=== PATIENT | female | born 1985 | race Caucasian/White ===

== ENCOUNTER 2020-01-06 20:00 | Outpatient (CLI) | payer MEDICARE, MEDICAID, SELFPAY | END 2020-01-06 20:01 | disposition home or self-care (01) | LOC: SLEEP 01-07 11:01 | PROVIDERS: PCP Internal Medicine; Visit Provider Nurse Practitioner Family | DX: G47.10 Hypersomnia, unspecified (principal); R53.83 Other fatigue | CPT/HCPCS: 95810 ==

== ENCOUNTER 2020-11-10 07:58 | Outpatient (CLI) | payer MEDICARE, MEDICAID, SELFPAY ==
--- NOTE | 2020-11-10 08:03 | MR_ITS ---
WS: [id number] MRI CERVICAL SPINE WITH AND WITHOUT CONTRAST HISTORY: NEUROPATHY/MULTIPLE SCLEROSIS COMPARISON: 04/30/2018 Technique: Multiplanar, multisequence imaging of the cervical spine with and without MultiHance. Normal cervical alignment with no compression fracture or significant disc space narrowing. Increased T2 and FLAIR signal at multiple levels in the cervical cord. Most significant changes (at t he C2-3 disc level extending to C5. Ill-defined areas of increased signal in the cervical cord. None of these areas enhance. On the T1 sequence there some very mild loss of signal posteriorly extending from C3 through C5. Craniocervical junction, C1 and C2 relationship, odontoid process and soft tissues are normal. C2-C3: No stenosis or disc protrusions. C3-C4: Hypertrophic osteophytes. No stenosis. C4-C5: No stenosis. C5-C6: No stenosis. Motion artifact. C6-C7: No stenosis. Motion. C7-T1: No stenosis. Motion Paraspinal soft tissue are normal. MR/MR cervical spine wo/w [id number] IMPRESSION: 1. Significant motion artifact limiting evaluation for subtle lesions or enhan cement. 2. Continued multilevel areas of increased nonenhancing signal from demyelinat ing disease as described above. No obvious progression.
--- NOTE | 2020-11-10 08:04 | MR_ITS ---
WS: [id number] MRI BRAIN WITH AND WITHOUT CONTRAST HISTORY: NEUROPATHY/MULTIPLE SCLEROSIS COMPARISON: 04/12/2018 TECHNIQUE: Multiplanar imaging performed through the brain with MultiHance 17 ml's IV. No acute infarcts are seen. Steven-white matter differentiation is well preserved. Numerous T2 and FLAI R signal hyperintensities in the white matter and pericallosal distribution consistent with a history of demyelinating disease. No progression or enhancement. None of these areas demonstrate loss of sig nal on the T1 sequences. No significant brain atrophy. Upper cervical cord is negative. No susceptibility artifacts or prior lacunar infarcts. Ventricles and extra-axial spaces are normal. Clivus and pituitary gland are normal. Visualized posterior fossa and brainstem are also normal. Postcontrast images are negative for masses or vascular malformations. Dural venous sinuses are normal. Paranasal sinuses: Mucous retention cyst in the RIGHT maxillary sinus. Mastoid air cells: Normal. Calvarium and scalp: Normal. MR/MR head wo/w con [id number] IMPRESSION: 1. Stable demyelinating lesions without enhancement since 04/12/2018. No progre ssion. Mild demyelinating burden. 2. No enhancing masses. No infarcts.
--- NOTE | 2020-11-10 08:04 | MR_ITS ---
WS: [id number] MRI THORACIC SPINE with and without contrast. HISTORY: NEUROPATHY/MULTIPLE SCLEROSIS COMPARISON: 04/30/2018 TECHNIQUE: Multiplanar sequences are performed in sagittal and axial planes. Post contrast imaging al so performed. The increased signal in the upper thoracic spine at T1-2 is better seen on the MRI cervical exam. The re is an additional area of mild increased signal on the ventral cord at T8-9. Increased signal at th e T12-L1 level. All of these areas appear stable as compared to the prior examination with no enhance ment. There is no lucency or necrosis. No disc protrusions or stenosis. No atrophy or enlargement of the thoracic cord. MR/MR thoracic spine wo/w [id number] IMPRESSION: 1. Study is compromised by motion. 2. Demyelinating lesions at T1-2, T8-9 and T12-L1 do not enhance. Stable with no progression since the prior study. Subtle areas of enhancement would be obsc ured by the amount of motion.
== END 2020-11-10 07:59 | disposition home or self-care (01) ==
PROVIDERS: PCP Internal Medicine; Visit Provider Nurse Practitioner Family
DX: G35 Multiple sclerosis (principal); R20.9 Unspecified disturbances of skin sensation; G62.9 Polyneuropathy, unspecified
CPT/HCPCS: 70553; 72156; 72157; A9577

== ENCOUNTER 2021-11-08 11:35 | Emergency (ER) | payer MEDICARE, MEDICAID, SELFPAY ==
--- NOTE | 2021-11-08 11:40 | XR_ITS ---
WS: [id number] PORTABLE CHEST HISTORY: SOB COMPARISON: 10/11/2017 Lungs are clear and well expanded. No pleural effusion or pneumothorax. Cardiac size: Normal. Mediastinum/Aorta: Normal mediastinum. No osseous abnormality seen. XR/XR chest 1V portable [id number] IMPRESSION: Unremarkable portable chest.
[2021-11-08 11:43] VITALS: BP 119/86; PULSE 109; RESP 18; TEMP 36.7; O2SAT 96; BMI 33.8
[2021-11-08 13:38] LABS: Basophils % 0.4 %; Eosinophils # 0.1 10^3/uL (0.0-0.8); Eosinophils % 1.2 %; Hematocrit 42.2 % (37.0-47.0); Hemoglobin 13.7 g/dL (11.5-15.3); Lymphocytes # 1.8 10^3/uL (0.8-4.8); Mean Corpuscular HGB Conc 32.5 g/dL (30.0-36.0); Mean Corpuscular Hemoglobin 30.2 pg (28.0-34.0); Mean Corpuscular Volume 93.2 fl (81-99); Mean Platelet Volume 10.1 fL (7.4-10.4); Monocytes # 0.4 10^3/uL (0.2-0.9); Monocytes % 7.7 %; Neutrophils # 3.34 10^3/uL (1.8-7.7); Neutrophils % 58.5 %; Nucleated Red Blood Cells % 0 %; Platelet Count 241 10^3/cmm (130-400); Red Blood Count 4.53 10^6/uL (4.1-5.3); Red Cell Distribution Width 11.6 % (12.1-15.1); White Blood Count 5.7 10^3/uL (4.0-10.0)
[2021-11-08 13:59] LABS: Alanine Aminotransferase 68 U/L (0-33); Albumin Level 4.2 g/dL (3.5-5.2); Alkaline Phosphatase 108 IU/L (35-105); Anion Gap 16.4 (5-19); Aspartate Amino Transferase 26 U/L (0-32); Blood Urea Nitrogen 19 mg/dL (6-20); Calcium 9.2 mg/dL (8.5-10.5); Carbon Dioxide 23 mmol/L (22-29); Chloride 105 mmol/L (98-107); Globulin 2.3 g/dL (1.3-4.6); Glomerular Filtration Rate 113.1 mL/min (90-130); Glucose 99 mg/dL (65-115); Osmolality Calculated 292 mOsm/kg (285-295); Potassium 4.4 mmol/L (3.5-5.1); Sodium 140 mmol/L (136-145); Total Bilirubin 0.2 mg/dL (0.15-1.2); Total Protein 6.5 g/dL (6.6-8.7)
[2021-11-08 14:05] LABS: Procalcitonin 0.04 ng/mL (0-0.5)
[2021-11-08 15:43] LABS: SARS Covid-2 Antigen Negative (Negative)
[2021-11-08 16:49] VITALS: BP 135/93; PULSE 111; RESP 20; O2SAT 99
--- NOTE | 2021-11-08 17:03 | W.ED.SOB ---
HPI - SOB/Dyspnea General: Chief Complaint: Shortness of Breath/Dyspnea Stated Complaint: SOB Time Seen by Provider: 11/08/21 17:00 Source: patient History of Present Illness: HPI Narrative: 35-year-old female comes in today with some shortness of breath on exertion. Patient reports that she was able to talk and carry on a conversation but when she got up to move it she felt more short of breath. Patient at rest noted to have no tachypnea or signs of respiratory distress. When patient went to talk though her respiratory rate increased and she seemed short of breath. Patient denied feeling anxious. Patient reported no chest pain or other discomfort. Patient does have a history of MS, thyroid dysfunction, depression and chronic fatigue syndrome. Patient appears nontoxic, patient appears no pain. Review of Systems Resp: Reports: dyspnea PFSH ED PFSH: Medical History (Updated 11/08/21 @ 17:54 by ANUEL Zuleta) Acid reflux Chronic fatigue Depression History of fracture of left ankle History of fracture of right ankle Insomnia Multiple sclerosis Neuropathy Plantar fasciitis Thyroid goiter Is undertreatment for hyperthyroidism Vitamin D deficiency Physical Exam Const: COMMON NORMALS: patient oriented x3 and healthy appearing NUTRITIONAL APPEARANCE: obese Neck/C-Spine: COMMON NORMALS: full ROM and no lymphadenopathy Resp: COMMON NORMALS: clear to auscultation bilaterally EFFORT & INSPECTION: Yes able to speak in complete sentences AUSCULTATION: clear to auscultation bilaterally GI: COMMON NORMALS: Soft to palpation PALPATION: Yes Soft to palpation and No Tenderness to palpation present (GI) Extremity: GENERAL: No edema Neuro: COMMON NORMALS: patient oriented x3 and gait normal Psych: COMMON NORMALS: cooperative Skin: COMMON NORMALS: no rashes or lesions noted GENERAL SKIN EXAM: no rashes or lesions noted Course Vital Signs: Vital signs: Vital Signs Temperature 98.1 F 11/08/21 11:43 Pulse Rate 111 H 11/08/21 16:49 Respiratory Rate 20 H 11/08/21 16:49 Blood Pressure 135/93 11/08/21 16:49 Pulse Oximetry 99 11/08/21 16:49 MDM - SOB/Dyspnea MDM Narrative Medical decision making narrative: 35-year-old female comes in today with complaints of shortness of breath with exertion. Patient reports for the last 3 days she has had these episodes. On exam patient is alert and oriented. Patient appears well and without any signs of distress. Patient does get tachypneic when she is talking to the provider although when she is sitting quietly she is have normal respirations without any distress. Lungs are clear to auscultation. Vital signs are normal. Differential diagnosis includes but not limited to adverse effect of drug, anxiety, pneumonia, COVID-19. COVID-19 test was negative. Laboratory values were unremarkable except for some mild elevation in liver enzymes. I suspect that this may be either anxiety or secondary to some of her medication. I recommended patient follow-up with her primary care provider or prescribe her medications for further evaluation and treatment. Patient reported understanding agreed to plan. Lab Data Result diagrams: 11/08/21 13:17 11/08/21 13:17 Labs: Radiology Impressions Chest X-Ray 11/08/21 11:40 IMPRESSION: Unremarkable portable chest. Laboratory Results WBC 5.7 10^3/uL (4.0-10.0) 11/08/21 13:17 RBC 4.53 10^6/uL (4.1-5.3) 11/08/21 13:17 Hgb 13.7 g/dL (11.5-15.3) 11/08/21 13:17 Hct 42.2 % (37.0-47.0) 11/08/21 13:17 MCV 93.2 fl (81-99) 11/08/21 13:17 MCH 30.2 pg (28.0-34.0) 11/08/21 13:17 MCHC 32.5 g/dL (30.0-36.0) 11/08/21 13:17 RDW 11.6 % (12.1-15.1) L 11/08/21 13:17 Plt Count 241 10^3/cmm (130-400) 11/08/21 13:17 MPV 10.1 fL (7.4-10.4) 11/08/21 13:17 Neut % (Auto) 58.5 % 11/08/21 13:17 Lymph % (Auto) 32.0 % 11/08/21 13:17 [place] % (Auto) 7.7 % 11/08/21 13:17 Eos % (Auto) 1.2 % 11/08/21 13:17 Baso % (Auto) 0.4 % 11/08/21 13:17 Neut # (Auto) 3.34 10^3/uL (1.8-7.7) 11/08/21 13:17 Lymph # (Auto) 1.8 10^3/uL (0.8-4.8) 11/08/21 13:17 [place] # (Auto) 0.4 10^3/uL (0.2-0.9) 11/08/21 13:17 Eos # (Auto) 0.1 10^3/uL (0.0-0.8) 11/08/21 13:17 Baso # (Auto) 0.0 10^3/uL (0.0-0.1) 11/08/21 13:17 Nucleated RBC % (auto) 0 % 11/08/21 13:17 Nucleated RBCs # 0.0 /100WBC 11/08/21 13:17 Sodium 140 mmol/L (136-145) 11/08/21 13:17 Potassium 4.4 mmol/L (3.5-5.1) 11/08/21 13:17 Chloride 105 mmol/L (98-107) 11/08/21 13:17 Carbon Dioxide 23 mmol/L (22-29) 11/08/21 13:17 Anion Gap 16.4 (5-19) 11/08/21 13:17 BUN 19 mg/dL (6-20) 11/08/21 13:17 Creatinine 0.6 mg/dL (0.5-0.9) 11/08/21 13:17 GFR Calculation 113.1 mL/min (90-130) 11/08/21 13:17 Glucose 99 mg/dL (65-115) 11/08/21 13:17 Calculated Osmolality 292 mOsm/kg (285-295) 11/08/21 13:17 Calcium 9.2 mg/dL (8.5-10.5) 11/08/21 13:17 Total Bilirubin 0.2 mg/dL (0.15-1.2) 11/08/21 13:17 AST 26 U/L (0-32) 11/08/21 13:17 ALT 68 U/L (0-33) H 11/08/21 13:17 Alkaline Phosphatase 108 IU/L (35-105) H 11/08/21 13:17 Total Protein 6.5 g/dL (6.6-8.7) L 11/08/21 13:17 Albumin 4.2 g/dL (3.5-5.2) 11/08/21 13:17 Globulin 2.3 g/dL (1.3-4.6) 11/08/21 13:17 Procalcitonin 0.04 ng/mL (0-0.5) 11/08/21 13:17 SARS-CoV-2 Ag (Rapid) Negative (Negative) 11/08/21 15:12 EKG Data EKG 1: EKG Interpretation Date: 11/08/21 EKG interpretation time: 17:35 Prior EKG tracings: not available for review Interpretation: EKG shows a sinus tachycardia with a regular rate at [address] elevation is noted or ectopy is noted. No prior exam is available for comparison at this time. Discharge Plan Discharge Patient Disposition: Home Clinical Impression: Dyspnea, unspecified Condition: Stable Prescriptions: No Action estradiol 0.5 mg tablet 0.5 mg PO DAILY 0RF Rx Instructions: off 5 days; repeat cycle methimazole 10 mg tablet 10 mg PO DAILY 0RF atorvastatin 40 mg tablet 40 mg PO DAILY 0RF baclofen 10 mg tablet 10 mg PO BID 0RF carbamazepine 200 mg tablet 200 mg PO BID 0RF gabapentin 400 mg capsule 400 mg PO BID 0RF methylphenidate HCl 20 mg tablet 20 mg PO BID 0RF sertraline 50 mg tablet 50 mg PO TID 0RF topiramate 50 mg tablet 50 mg PO BID 0RF modafinil 200 mg tablet 100 mg PO BID 0RF Rx Instructions: take 1/2 tab every morning at 1/2 tab at noon omeprazole 20 mg capsule,delayed release(DR/EC) See Rx Instructions .ROUTE .COMPLEX Qty: 180 0RF Dose Instruction: Take 1 capsule by mouth twice daily. Rx Instructions: Take 1 capsule by mouth twice daily. Discharge Orders: Discharge ED (Routine); Ordered 11/08/21 Ordered By: Donte Lujan Referrals: Liliana Delgado DO [Primary Care Provider] - Discharge Diet: Usual diet Discharge Activity: Increase activity as tolerated Patient Instructions: Shortness of Breath (ED) Activity Restrictions/Additional Instructions: Activity as tolerated. You have some shortness of breath with exertion, I think this may be a side effect of some of your medications and you should talk to your primary care for prescriber about these medications. Your labs and EKG noted no abnormalities that may cause the symptoms. Your primary care may want you to follow-up with a gear technician or revenue cycle specialist for further evaluation. Return to the ER for worsening symptoms or new concerns. Coding Level of Care Code ED Hospitality Housekeeper for Ezequiel Guillen
--- NOTE | 2021-11-08 17:08 | ECG_ITS ---
[facility] Test Date: 2021-11-08 Pat Name: Edith Pugh Department: Room: Gender: Female Hull Builder: : 1985 Requested By: Donte Costa Order Number: [id number] Figueroa MD: Ruth Ann Dotson M.D. Measurements Intervals [place] Rate: 105 P: 50 MN: 168 QRS: -6 QRSD: 77 T: 35 QT: 315 QTc: 417 Interpretive Statements SINUS TACHYCARDIA POSSIBLE LEFT ATRIAL ENLARGEMENT [-0.1mV P-WAVE IN V1/V2] POSSIBLE RIGHT VENTRICULAR CONDUCTION DELAY [RSR (QR) IN V1/V2] Compared to ECG 12/05/2016 12:23:17 Sinus rhythm no longer present Incomplete right bundle-branch block no longer present Electronically Signed On 11-08-2021 21:36:22 CROP SETTING OUT MACHINE OPERATOR by Ruth Ann Dotson M.D. [id number]
[2021-11-10 15:21] LABS: Free T4 Free Thyroxine 3.78 ng/dL (0.82-1.77); Thyroid Stimulating Hormone 0.01 uIU/mL (0.27-4.20)
== END 2021-11-08 18:01 | disposition home or self-care (01) ==
PROVIDERS: Physician Assistant; Psychiatry & Neurology Neurology; Emergency Provider Nurse Practitioner Family; PCP Internal Medicine
DX: R06.00 Dyspnea, unspecified (principal); G35 Multiple sclerosis; Z20.822 Contact with and (suspected) exposure to COVID-19
CPT/HCPCS: 71045; 80053; 84145; 84439; 84443; 85025; 87426; 93005; 99283

== ENCOUNTER → 2021-11-23 13:12 | Outpatient (BNVA) | payer MEDICARE, MEDICAID, SELFPAY | PROVIDERS: PCP Internal Medicine; Referring Provider Family Medicine Adult Medicine; Visit Provider Internal Medicine | DX: E05.90 Thyrotoxicosis, unspecified without thyrotoxic crisis or storm (principal); E04.9 Nontoxic goiter, unspecified; R74.01 Elevation of levels of liver transaminase levels; G35 Multiple sclerosis | CPT/HCPCS: 83516; 86376; 86800; 99204 ==

== ENCOUNTER 2021-11-23 14:45 | Outpatient (CLI) | payer MEDICARE, MEDICAID, SELFPAY ==
[2021-11-24 14:07] LABS: Thyroid Peroxidase Antobodies 1 IU/mL (<9)
[2021-11-24 14:22] LABS: Thyroglobulin AB <1 IU/mL (< or = 1)
[2021-11-29 21:56] LABS: TSH Receptor Binding Antibody 12.29 IU/L (< OR = 2.00)
== END 2021-11-23 14:46 | disposition home or self-care (01) ==
LOC: LAB 15:04
PROVIDERS: PCP Family Medicine Adult Medicine; Visit Provider Internal Medicine
DX: E05.90 Thyrotoxicosis, unspecified without thyrotoxic crisis or storm (principal)
CPT/HCPCS: 83516; 86376; 86800

== ENCOUNTER → 2021-12-16 10:43 | Outpatient (BNVA) | payer MEDICARE, MEDICAID, SELFPAY | PROVIDERS: PCP Family Medicine Adult Medicine; Visit Provider Family Medicine Adult Medicine | DX: E05.90 Thyrotoxicosis, unspecified without thyrotoxic crisis or storm (principal); R74.01 Elevation of levels of liver transaminase levels | CPT/HCPCS: 80053; 84439; 84443; 84480; 85025 ==

== ENCOUNTER → 2022-01-09 13:58 | Outpatient (BNVA) | payer MEDICARE, MEDICAID, SELFPAY | PROVIDERS: PCP Family Medicine Adult Medicine; Visit Provider Podiatrist Foot & Ankle Surgery | DX: M79.672 Pain in left foot (principal); M79.671 Pain in right foot | CPT/HCPCS: 73630 ==

== ENCOUNTER → 2022-01-24 11:48 | Outpatient (BNVA) | payer MEDICARE, MEDICAID, SELFPAY | PROVIDERS: PCP Family Medicine Adult Medicine; Visit Provider Family Medicine Adult Medicine | DX: E66.9 Obesity, unspecified (principal); Z79.899 Other long term (current) drug therapy; R74.01 Elevation of levels of liver transaminase levels; E05.90 Thyrotoxicosis, unspecified without thyrotoxic crisis or storm; E04.9 Nontoxic goiter, unspecified; R53.82 Chronic fatigue, unspecified | CPT/HCPCS: 80053; 80061; 81000; 83036; 84439; 84443; 84480; 85007; 85025; 85027 ==

== ENCOUNTER → 2022-01-26 14:02 | Outpatient (BNVA) | payer MEDICARE, MEDICAID, SELFPAY | PROVIDERS: PCP Family Medicine Adult Medicine; Visit Provider Internal Medicine | DX: E05.90 Thyrotoxicosis, unspecified without thyrotoxic crisis or storm (principal); E04.9 Nontoxic goiter, unspecified; R74.01 Elevation of levels of liver transaminase levels; G35 Multiple sclerosis | CPT/HCPCS: 99214; 99215 ==

== ENCOUNTER → 2022-04-05 14:51 | Outpatient (BNVA) | payer MEDICARE, MEDICAID, SELFPAY | PROVIDERS: PCP Surgery; Referring Provider Psychiatry & Neurology Neurology; Visit Provider Psychiatry & Neurology Neurology | DX: E04.9 Nontoxic goiter, unspecified (principal); E05.90 Thyrotoxicosis, unspecified without thyrotoxic crisis or storm; E78.5 Hyperlipidemia, unspecified; R53.82 Chronic fatigue, unspecified | CPT/HCPCS: 80053; 81003; 84439; 84443; 84480; 85025 ==

== ENCOUNTER → 2022-05-04 12:11 | Outpatient (BNVA) | payer MEDICARE, MEDICAID, SELFPAY | PROVIDERS: PCP Surgery; Visit Provider Family Medicine Adult Medicine | DX: E05.90 Thyrotoxicosis, unspecified without thyrotoxic crisis or storm (principal); E78.5 Hyperlipidemia, unspecified; E04.9 Nontoxic goiter, unspecified; G35 Multiple sclerosis; R53.82 Chronic fatigue, unspecified; Z79.899 Other long term (current) drug therapy | CPT/HCPCS: 80053; 81003; 84439; 84443; 85025; 87086 ==

== ENCOUNTER 2022-06-09 12:09 | Outpatient (CLI) | payer MEDICARE, MEDICAID, SELFPAY ==
[2022-06-09 13:44] LABS: Basophils % 0.4 %; Eosinophils # 0.1 10^3/uL (0.0-0.8); Eosinophils % 1.5 %; Hematocrit 39.8 % (37.0-47.0); Hemoglobin 12.7 g/dL (11.5-15.3); Lymphocytes # 2.3 10^3/uL (0.8-4.8); Lymphocytes % 29.1 %; Mean Corpuscular HGB Conc 31.9 g/dL (30.0-36.0); Mean Corpuscular Hemoglobin 29.7 pg (28.0-34.0); Mean Corpuscular Volume 93.2 fl (81-99); Mean Platelet Volume 9.6 fL (7.4-10.4); Monocytes # 0.5 10^3/uL (0.2-0.9); Monocytes % 6.3 %; Neutrophils # 5.02 10^3/uL (1.8-7.7); Neutrophils % 62.5 %; Nucleated Red Blood Cells % 0 %; Platelet Count 217 10^3/cmm (130-400); Red Blood Count 4.27 10^6/uL (4.1-5.3); Red Cell Distribution Width 14.4 % (12.1-15.1)
[2022-06-09 14:22] LABS: Alanine Aminotransferase 32 U/L (0-33); Albumin Level 3.9 g/dL (3.5-5.2); Alkaline Phosphatase 273 U/L (35-105); Anion Gap 14.1 (5-19); Aspartate Amino Transferase 11 U/L (0-32); Blood Urea Nitrogen 15 mg/dL (6-20); Calcium 8.3 mg/dL (8.5-10.5); Carbon Dioxide 23 mmol/L (22-29); Chloride 108 mmol/L (98-107); Free T4 Free Thyroxine 0.95 ng/dL (0.82-1.77); Globulin 2.4 g/dL (1.3-4.6); Glomerular Filtration Rate 138.8 mL/min (90-130); Glucose 90 mg/dL (65-115); Osmolality Calculated 292 mOsm/kg (285-295); Potassium 4.1 mmol/L (3.5-5.1); Sodium 141 mmol/L (136-145); Thyroid Stimulating Hormone 0.01 uIU/mL (0.27-4.20); Total Bilirubin 0.2 mg/dL (0.15-1.2); Total Protein 6.3 g/dL (6.6-8.7)
[2022-06-10 09:58] LABS: T3 Total 211 ng/dL (76-181)
== END 2022-06-09 12:10 | disposition home or self-care (01) ==
LOC: LAB 12:33
PROVIDERS: Absent Provider Surgery; PCP Surgery; Visit Provider Psychiatry & Neurology Neurology
DX: Z01.89 Encounter for other specified special examinations (principal); R06.89 Other abnormalities of breathing
CPT/HCPCS: 36415; 80053; 84439; 84443; 84480; 85025

== ENCOUNTER → 2022-07-12 14:50 | Outpatient (BNVA) | payer MEDICARE, MEDICAID, SELFPAY | PROVIDERS: PCP Surgery; Visit Provider Psychiatry & Neurology Neurology | DX: E04.9 Nontoxic goiter, unspecified (principal); E05.90 Thyrotoxicosis, unspecified without thyrotoxic crisis or storm; E78.5 Hyperlipidemia, unspecified; G35 Multiple sclerosis; R53.82 Chronic fatigue, unspecified; Z79.899 Other long term (current) drug therapy | CPT/HCPCS: 81003; 82565; 84443; 85025 ==

== ENCOUNTER → 2022-08-09 11:41 | Outpatient (BNVA) | payer MEDICARE, MEDICAID, SELFPAY | PROVIDERS: PCP Surgery; Visit Provider Psychiatry & Neurology Neurology | DX: E55.9 Vitamin D deficiency, unspecified (principal); E04.9 Nontoxic goiter, unspecified; Z79.899 Other long term (current) drug therapy | CPT/HCPCS: 80051; 80053; 81003; 82306; 82310; 82565; 83735; 84100; 84443; 85025 ==

== ENCOUNTER → 2022-09-13 11:00 | Outpatient (BNVA) | payer MEDICARE, MEDICAID, SELFPAY | PROVIDERS: PCP Surgery; Visit Provider Surgery | DX: Z79.899 Other long term (current) drug therapy (principal); E04.9 Nontoxic goiter, unspecified; E89.0 Postprocedural hypothyroidism | CPT/HCPCS: 80053; 81003; 83735; 84439; 84443; 85025 ==

== ENCOUNTER 2022-10-23 15:27 | Outpatient (CLI) | payer MEDICARE, MEDICAID, SELFPAY ==
[2022-10-23 17:09] LABS: Free T4 Free Thyroxine 1.26 ng/dL (0.82-1.77); Thyroid Stimulating Hormone 0.79 uIU/mL (0.27-4.20)
[2022-10-23 17:53] LABS: Add Urine Microscopic? YES; Bilirubin Urine Neg (Negative); Blood Urine Neg (Negative); Glucose Urine UA Norm (Normal); Ketones Urine Negative (Negative); Leukocyte Esterase Urine 2+ (Negative); Nitrate Urine Negative (Negative); Protein Urine Neg (Negative); Urine Appearance Clear (CLEAR); Urine Color Yellow (Yellow); Urobilinogen Urine Neg (Negative); pH Urine 6 (5-7)
[2022-10-23 17:54] LABS: Add Urine Culture? No; Amorphous Sediment Urine 1+ /hpf; Bacteria Urine TRACE /hpf; Squamous Epithelial Cell Urine 0-4 /hpf (0-5)
[2022-10-23 20:15] LABS: Alanine Aminotransferase 49 U/L (0-33); Albumin Level 4.6 g/dL (3.5-5.2); Alkaline Phosphatase 205 U/L (35-105); Aspartate Amino Transferase 19 U/L (0-32); Blood Urea Nitrogen 13 mg/dL (6-20); Calcium 9.4 mg/dL (8.5-10.5); Carbon Dioxide 23 mmol/L (22-29); Chloride 103 mmol/L (98-107); Globulin 2.8 g/dL (1.3-4.6); Glomerular Filtration Rate 80.7 mL/min (90-130); Glucose 77 mg/dL (65-115); Osmolality Calculated 285 mOsm/kg (285-295); Sodium 138 mmol/L (136-145); Total Bilirubin 0.2 mg/dL (0.15-1.2); Total Protein 7.4 g/dL (6.6-8.7)
[2022-10-23 20:31] LABS: 25 Hydroxy Vitamin D 25 ng/mL (30-100)
[2022-10-25 15:19] LABS: Anti-Nuclear Antibody Screen NEGATIVE (NEGATIVE)
[2022-10-25 18:37] LABS: Basophils % 0.4 %; Eosinophils % 1.3 %; Hematocrit 43.6 % (37.0-47.0); Hemoglobin 14.1 g/dL (11.5-15.3); Lymphocytes % 33.7 %; Mean Corpuscular HGB Conc 32.3 g/dL (30.0-36.0); Mean Corpuscular Hemoglobin 31.1 pg (28.0-34.0); Mean Corpuscular Volume 96.2 fl (81-99); Mean Platelet Volume 10.2 fL (7.4-10.4); Monocytes % 5.2 %; Neutrophils % 59.4 %; Platelet Count 238 10^3/cmm (130-400); Red Blood Count 4.53 10^6/uL (4.1-5.3); Red Cell Distribution Width 12.7 % (12.1-15.1); White Blood Count 8.5 10^3/uL (4.0-10.0)
[2022-10-25 18:38] LABS: Eosinophils # 0.1 10^3/uL (0.0-0.8); Erythrocyte Sedimentation Rate 2 mm/hr (0-15); Lymphocytes # 2.9 10^3/uL (0.8-4.8); Monocytes # 0.4 10^3/uL (0.2-0.9)
== END 2022-10-23 15:28 | disposition home or self-care (01) ==
PROVIDERS: PCP Family Medicine Adult Medicine; Referring Provider Surgery; Visit Provider Psychiatry & Neurology Neurology
DX: Z13.828 Encounter for screening for other musculoskeletal disorder (principal); E03.2 Hypothyroidism due to medicaments and other exogenous substances
CPT/HCPCS: 80053; 81001; 82306; 84439; 84443; 85025; 85651; 86038; 86140; 86431

== ENCOUNTER 2023-04-23 13:26 | Outpatient (CLI) | payer MEDICARE, MEDICAID, SELFPAY ==
[2023-04-23 14:35] LABS: Free T4 Free Thyroxine 1.27 ng/dL (0.82-1.77); Thyroid Stimulating Hormone 1.75 uIU/mL (0.27-4.20)
[2023-04-24 07:24] LABS: T3 Total 94 ng/dL (76-181)
== END 2023-04-23 13:27 | disposition home or self-care (01) ==
LOC: LAB 13:31
PROVIDERS: PCP Family Medicine Adult Medicine; Visit Provider Surgery
DX: E03.2 Hypothyroidism due to medicaments and other exogenous substances (principal)
CPT/HCPCS: 36415; 84439; 84443; 84480

== ENCOUNTER → 2023-10-01 10:48 | Outpatient (BNVA) | payer MEDICARE, MEDICAID, SELFPAY | PROVIDERS: PCP Family Medicine Adult Medicine; Referring Provider Family Medicine Adult Medicine; Visit Provider Nurse Practitioner Family | DX: L57.0 Actinic keratosis (principal); L85.8 Other specified epidermal thickening; L70.0 Acne vulgaris; D22.5 Melanocytic nevi of trunk | CPT/HCPCS: 17000; 99203 ==

== ENCOUNTER 2024-03-31 14:58 | Outpatient (CLI) | payer MEDICARE, MEDICAID, SELFPAY ==
--- NOTE | 2024-03-31 15:03 | XRR_ITS ---
PROCEDURE INFORMATION: Exam: XR Chest Exam date and time: 03/31/2024 3:07 PM Age: 38 years old Clinical indication: Cough; Prior surgery; Surgery date: 6+ months; Surgery type: Breast reduction; Additional info: Acute bronchitis / acute cough TECHNIQUE: Imaging protocol: Radiologic exam of the chest. Views: 2 views. COMPARISON: CR XR chest 1V portable [id number] 11/08/2021 12:08 PM FINDINGS: Lungs: Unremarkable. No consolidation. Pleural spaces: Unremarkable. No pleural effusion. No pneumothorax. Heart/Mediastinum: Unremarkable. No cardiomegaly. Bones/joints: Unremarkable. XR/XR chest 2V* [id number] IMPRESSION: No acute findings.
== END 2024-03-31 14:59 | disposition home or self-care (01) ==
LOC: RAD 14:58
PROVIDERS: PCP Family Medicine Adult Medicine; Visit Provider Specialist
DX: J20.9 Acute bronchitis, unspecified (principal)
CPT/HCPCS: 71046